=== PATIENT | female | born 1985 | race Caucasian/White ===

== ENCOUNTER 2022-06-11 00:47 | Emergency (ER) | payer MEDICAID ==
[~2022-06-11] VITALS: Ht 162.6 cm; Wt 100.0 kg
[~2022-06-11 00:47] MED LIST: AMOXICILLIN/CL875 MG PO; AMOXICILLIN875 MG PO; BCP; BENADRYL 50MG C50 MG PO; DOXYCYCL HYC100 MG PO; FLONASE NASAL50 MCG; METFORMIN500 M1 PO; METFORMIN500 MG PO; MUCINEX600 MG PO; PERCOCET1 TA4 PO; TORADOL PO; TYLENOL 500MG TAB PO; ULTRAM50 MG PO; [UNRECOGNIZED DRUG - OTHER] PO
[2022-06-11 00:57] VITALS: BP 149/108
[2022-06-11 00:59] VITALS: BP 151/101
[2022-06-11 01:01] VITALS: BP 142/92
[2022-06-11 01:31] VITALS: BP 140/89
[2022-06-11 02:01] VITALS: BP 164/95
[2022-06-11 02:15] VITALS: BP 164/95
== END 2022-06-11 02:20 | disposition home or self-care (01) ==
LOC: ED 00:47
DX: S93.402A Sprain of unspecified ligament of left ankle, initial encounter (principal); E66.9 Obesity, unspecified; F17.210 Nicotine dependence, cigarettes, uncomplicated; X50.0XXA Overexertion from strenuous movement or load, initial encounter

== ENCOUNTER 2022-07-04 20:39 | Emergency (ER) | payer MEDICAID ==
[~2022-07-04] VITALS: Ht 162.6 cm; Wt 100.0 kg
[2022-07-04 20:52] VITALS: BP 106/71
[2022-07-04 21:00] VITALS: BP 119/96
[2022-07-04 21:16] VITALS: BP 114/57
[2022-07-04 21:42] LABS: HEMOGLOBIN 13.5 g/dl (12.0-16.0); IMMATURE GRANULOCYTES 0.3 % (0.0-5.0); MEAN CELL VOLUME 86.6 fL CALC (80.0-100.0); MEAN CORPUSCULAR HGB 29.2 pG CALC (26.0-32.0); MEAN CORPUSCULAR HGB CONC 33.8 g/dL CAL (32.0-36.0); NEUT# 3.65 thou/uL (2.00-7.15); RED BLOOD COUNT 4.62 mill/uL (4.20-5.60)
[2022-07-04] MEDS ORDERED: TAM75CAP PO (22:30)
[2022-07-04 22:55] VITALS: BP 114/57
== END 2022-07-04 23:04 | disposition home or self-care (01) ==
LOC: ED 20:39
PROVIDERS: Family Medicine
DX: J10.1 Influenza due to other identified influenza virus with other respiratory manifestations (principal); E66.9 Obesity, unspecified; F17.200 Nicotine dependence, unspecified, uncomplicated; Z20.822 Contact with and (suspected) exposure to COVID-19